=== PATIENT | female | born 2005 | race African-American/Black ===

== ENCOUNTER 2023-01-22 03:42 | Emergency (ER) | payer OTHER, SELFPAY ==
[2023-01-22 03:55] VITALS: BP 119/71; PULSE 43; RESP 16; TEMP 36.3; O2SAT 99; BMI 25.1
[2023-01-22 04:27] LABS: Hematocrit 41.5 % (37.0-47.0); Hemoglobin 14.2 g/dl (12.0-16.0); Mean Corpuscular HGB Conc 34.2 g/dl (31.0-35.0); Mean Corpuscular Hemoglobin 27.8 pg (27.0-33.0); Mean Corpuscular Volume 81.4 fL (80.0-98.0); Mean Platelet Volume 10.6 fL (9.4-12.3); Platelet Count 217 X10*3/uL (160-400); Red Cell Distribution Width 13.6 % (11.0-16.0)
[2023-01-22 04:28] LABS: Appearance Urine Clear; Color Urine Yellow; Glucose Urine UA Negative (Negative); Leukocyte Esterase Urine Negative (Negative); Nitrite Urine Negative (Negative); PH 5.5 (5.0-9.0); UMIC TRIGGER UACC YES; Urine Blood Moderate (2+) (Negative); Urine Ketones Negative (Negative); Urine Protein Negative (Neg-Trace)
[2023-01-22 04:41] LABS: Alanine Aminotransferase 13 U/L (0-31); Albumin Level 4.4 g/dL (3.5-5.0); Alkaline Phosphatase 95 U/L (39-117); Anion Gap 10 (12-20); Aspartate Amino Transferase 19 U/L (5-31); Bilirubin Total 0.4 mg/dL (0.0-1.0); Blood Urea Nitrogen 13 mg/dL (9-16); Calcium 9.6 mg/dL (8.4-10.2); Carbon Dioxide 25 mmol/L (22-29); Chloride 110 mmol/L (96-108); Creatinine Clr Calc Pharmacy 103.5; Estimated Glomerular Filt Rate > 60; Glucose Random 89 mg/dL (60-115); Lipase 22 U/L (8-78); Potassium 3.9 mmol/L (3.3-5.1); Sodium 141 mmol/L (135-145); Total Protein 7.3 g/dL (6.5-8.0)
[2023-01-22 04:49] LABS: Bacteria Urine None Seen (None Seen); Hyaline Casts Urine 0-2 /LPF (0-2); Squamous Epithelial Cell Urine 0-2 /HPF (0-2); WBC Urine 0-5 /HPF (0-5)
[2023-01-22 06:06] VITALS: BP 118/76; PULSE 52; RESP 16; TEMP 36.7; O2SAT 98
[2023-01-22 08:32] VITALS: BP 125/73; PULSE 42; RESP 16; O2SAT 100
[2023-01-22 10:00] VITALS: BP 133/82; RESP 18; TEMP 36.7; O2SAT 97
[2023-01-22 10:12] VITALS: PULSE 48
[2023-01-22 10:21] LABS: UPreg QC Valid YES; Urine Pregnancy NEGATIVE (NEGATIVE)
--- NOTE | 2023-01-22 10:29 | ED.ABDPAIN ---
HPI - Abdominal Pain General Chief Complaint: Abdominal Pain Stated Complaint: stomach pain Time Seen by Provider: 01/22/23 09:59 Source: patient Mode of arrival: ambulatory Limitations: no limitations History of Present Illness HPI narrative: 17 yo female presenting to the ER for evaluation of intermittent diffuse abdominal pains that started yesterday morning when she work up. She states the pain comes and goes. She has had some mild associated nausea but no Vomiting, diarrhea or constipation. She states her last bowel movement was yesterday. She denies any urinary symptoms. She denies any chance of . She states the pain is currently a 3/10. She was tolerating p.o. in the waiting room. MD elicited complaint: abdominal pain Pertinent past history: none Onset (ago): day(s) (1) Pain Consistency: intermittent Location: diffuse Severity: moderate Radiation: none Migration to: no migration Exacerbating factors: nothing Relieving factors: nothing Associated symptoms: nausea Related Data Allergies Allergy/AdvReac Type Severity Reaction Status Date / Time No Known Allergies Allergy Verified 01/22/23 03:58 Review of Systems Review of Systems Yes all other systems are reviewed and are negative [facility] Past Medical History Medical History (Updated 01/22/23 @ 11:20 by TALITA Canseco) Achilles rupture ACL tear Social History Social History Smoked in Last 30 Days: No Use of substances other than those prescribed or required for medical reasons: No Advance Directives: No Advance Directives Information Provided: No Physical Exam ED Vital Signs: Vital Signs - 24 hr 01/22/23 03:55 01/22/23 06:06 01/22/23 08:32 Temperature 97.3 F 98.0 F Pulse Rate 43 L 52 42 L Respiratory Rate 16 16 16 Blood Pressure 119/71 118/76 125/73 Pulse Oximetry 99 98 100 Oxygen Delivery Method Room Air Room Air Room Air 01/22/23 10:00 01/22/23 10:12 Temperature 98.0 F Pulse Rate 48 L Respiratory Rate 18 Blood Pressure 133/82 Pulse Oximetry 97 Oxygen Delivery Method Room Air BMI result Body Mass Index 25.1 Appearance: Alert. Oriented X3. No acute distress. Head: normocephalic, atraumatic. Eyes: Pupils equal, round and reactive to light. ENT: Pharynx normal. No tonsillar swelling or exudate. Neck: Normal inspection. Neck supple. CVS: Normal heart rate and rhythm. Pulses normal. Respiratory: No respiratory distress. Breath sounds normal. Abdomen: Soft and nontender. +BS x4 Skin: Skin warm and dry. Normal skin color. Normal skin turgor. No rashes. Extremities: No lower extremity edema. No joint swelling. Neuro/psych: Oriented X 3. No motor deficit. No sensory deficit. CN II-XII intact. Normal speech and cognition. Medical Decision Making Medical Decision Making [facility] Narrative: 17-year-old female presenting to the ER for evaluation of intermittent, diffuse abdominal pains associated with nausea that started yesterday morning. patient's physical exam is unremarkable. Her abdomen is soft and nontender. Her lab work is also unremarkable. Only a mild leukocytosis of 11.0. Urinalysis negative for infection and . She was treated with GI cocktail and feels much better. She would like to go home. Comfortable holding off imaging and further testing today. Advised bland diet, p.r.n. Pepto or Maalox for upset stomach. Return precautions were discussed. Stable for discharge home Differential Diagnosis Differential Diagnoses: The differential diagnosis associated with the presentation includes Gastritis, gastroenteritis, GERD, , constipation, less likely acute cholecystitis, appendicitis, diverticulitis or colitis Admission/Observation Consideration of admission/observation: Escalation of care including admission/observation considered 17-year-old female presenting with abdominal pain, and considered observation Lab Data [facility] Lab Attestation statement: I reviewed the patient's lab results. 01/22/23 04:22 01/22/23 04:22 Labs: Lab Results 01/22/23 01/22/23 01/22/23 Range/Units 04:22 04:22 04:22 WBC 11.0 H (4.8-10.8) X10*3/uL RBC 5.10 (4.20-5.50) X10*6/uL Hgb 14.2 (12.0-16.0) g/dl Hct 41.5 (37.0-47.0) % MCV 81.4 (80.0-98.0) fL MCH 27.8 (27.0-33.0) pg MCHC 34.2 (31.0-35.0) g/dl RDW 13.6 (11.0-16.0) % Plt Count 217 (160-400) X10*3/uL MPV 10.6 (9.4-12.3) fL Absolute Nucleated RBC 0.000 (0.0-0.012) X10*3/uL Nucleated RBC % (auto) 0.0 (0.0-0.2) /100WBC Sodium 141 (135-145) mmol/L Potassium 3.9 (3.3-5.1) mmol/L Chloride 110 H (96-108) mmol/L Carbon Dioxide 25 (22-29) mmol/L Anion Gap 10 L (12-20) BUN 13 (9-16) mg/dL Creatinine 1.04 (0.5-1.4) mg/dL Estim Creat Clear Calc 103.5 Estimated GFR > 60 Random Glucose 89 (60-115) mg/dL Calcium 9.6 (8.4-10.2) mg/dL Total Bilirubin 0.4 (0.0-1.0) mg/dL AST 19 (5-31) U/L ALT 13 (0-31) U/L Alkaline Phosphatase 95 (39-117) U/L Total Protein 7.3 (6.5-8.0) g/dL Albumin 4.4 (3.5-5.0) g/dL Lipase 22 (8-78) U/L Urine Color Yellow Urine Appearance Clear Urine pH 5.5 (5.0-9.0) Ur Specific Foreman 1.020 (1.005-1.025) Urine Protein Negative (Neg-Trace) mg/dL Urine Glucose (UA) Negative (Negative) mg/dL Urine Ketones Negative (Negative) mg/dL Urine Blood Moderate (2+) H (Negative) Urine Nitrite Negative (Negative) Ur Leukocyte Esterase Negative (Negative) Urine RBC 3-5 H (0-2) /HPF Urine WBC 0-5 (0-5) /HPF Ur Squamous Epith Cells 0-2 (0-2) /HPF Urine Bacteria None Seen (None Seen) Hyaline Casts 0-2 (0-2) /LPF Urine Test (NEGATIVE) 01/22/23 Range/Units 04:22 WBC (4.8-10.8) X10*3/uL RBC (4.20-5.50) X10*6/uL Hgb (12.0-16.0) g/dl Hct (37.0-47.0) % MCV (80.0-98.0) fL MCH (27.0-33.0) pg MCHC (31.0-35.0) g/dl RDW (11.0-16.0) % Plt Count (160-400) X10*3/uL MPV (9.4-12.3) fL Absolute Nucleated RBC (0.0-0.012) X10*3/uL Nucleated RBC % (auto) (0.0-0.2) /100WBC Sodium (135-145) mmol/L Potassium (3.3-5.1) mmol/L Chloride (96-108) mmol/L Carbon Dioxide (22-29) mmol/L Anion Gap (12-20) BUN (9-16) mg/dL Creatinine (0.5-1.4) mg/dL Estim Creat Clear Calc Estimated GFR Random Glucose (60-115) mg/dL Calcium (8.4-10.2) mg/dL Total Bilirubin (0.0-1.0) mg/dL AST (5-31) U/L ALT (0-31) U/L Alkaline Phosphatase (39-117) U/L Total Protein (6.5-8.0) g/dL Albumin (3.5-5.0) g/dL Lipase (8-78) U/L Urine Color Urine Appearance Urine pH (5.0-9.0) Ur Specific Foreman (1.005-1.025) Urine Protein (Neg-Trace) mg/dL Urine Glucose (UA) (Negative) mg/dL Urine Ketones (Negative) mg/dL Urine Blood (Negative) Urine Nitrite (Negative) Ur Leukocyte Esterase (Negative) Urine RBC (0-2) /HPF Urine WBC (0-5) /HPF Ur Squamous Epith Cells (0-2) /HPF Urine Bacteria (None Seen) Hyaline Casts (0-2) /LPF Urine Test NEGATIVE (NEGATIVE) External Record Review External record reviewed: Outpatient record Tests considered The following testing was considered but not selected: considered CT scan of the abdomen however she was nontender on examination Prescription Management I considered prescription management with: Pain Medication Medications Administered Discontinued Medications Generic Name Dose Route Start Last Admin Trade Name Freq PRN Reason Stop Dose Admin Acetaminophen 975 mg 01/22/23 10:36 01/22/23 10:48 Acetaminophen 325 Mg Tablet PO 09/06/23 10:37 975 mg ONCE ONE Administration Al Hydroxide/Mg Hydroxide 30 ml 01/22/23 10:36 01/22/23 10:47 Magnesium Hydrox/Alum Hydrox 30 Ml Oral.Susp PO 01/22/23 10:37 30 ml ONCE ONE Administration Belladonna Alkaloids/Phenobarbital 10 ml 01/22/23 10:36 01/22/23 10:47 Phenobarb/Hyoscy/Atropine/Scop 10 Ml Elixir PO 01/22/23 10:37 10 ml ONCE ONE Administration Lidocaine HCl 15 ml 01/22/23 10:36 01/22/23 10:48 Lidocaine Hcl Viscous 2 % 15 Ml Solution MUCOUS MEM 01/22/23 10:37 15 ml ONCE ONE Administration Critical Care Time Critical Care Time Critical Care Time: No Discharge Plan Discharge Clinical Impression: Abdominal pain Patient Disposition: Home, Self-Care Instructions: Abdominal Pain (ED) Additional Instructions: Your lab workup today was unremarkable. Your urine test was negative for infection and . Recommends sticking to a bland diet where not feeling well. Recommend Pepto-Bismol or Maalox as needed for upset stomach. Follow-up with your doctor. If you develop new or worsening symptoms call 911 or come back to the ER for further evaluation. Interventions: ED Discharge Assessment Last Done: 01/22/23 11:38 Discharge Date/Time: 01/22/23 11:38
[2023-01-22] MEDS: Magnesium Hydrox/Alum Hydrox 30 ML ORAL.SUSP PO (10:47)
[2023-01-22] MEDS: PHENobarb/Hyoscy/Atropine/Scop 10 ML ELIXIR PO (10:47)
[2023-01-22] MEDS: Acetaminophen 325 MG TABLET 975 MG PO (10:48)
[2023-01-22] MEDS: Lidocaine HCl Viscous 2 % 15 ML SOLUTION MUCOUS MEM (10:48)
--- NOTE | 2023-01-22 10:52 | PC.NURSE ---
pt a&ox3. respirations even and unlabored. pt reports waking up with all over abdominal pain since yesterday that feels like it is cramping. pt denies nausea and vomiting at this time. pt denies chest pain and reports normal bowel movements. abdomen is soft non tender. vss. pt medicated per jul.
== END 2023-01-22 11:38 | disposition home or self-care (01) ==
PROVIDERS: Physician Assistant; Emergency Provider Emergency Medicine
DX: R10.9 Unspecified abdominal pain (principal)
CPT/HCPCS: 36415; 80053; 81001; 81025; 83690; 85027; 99284

== ENCOUNTER 2023-08-21 17:24 | Outpatient (REF) | payer OTHER, SELFPAY ==
--- NOTE | ~2023-08-21 | MR_ITS ---
EXAMINATION: MR ANKLE WITHOUT CONTRAST, right CLINICAL INFORMATION: Pain Achilles tendinitis COMPARISON: None available. TECHNIQUE: MRI of the ankle was performed using routine sequences on a high-field scanner. FINDINGS: Muscles/tendons: Achilles: There is minimal/subtle intermediate increased signal in the distal Achilles tendon compatible with focal tendinosis or minimal interstitial intrasubstance partial tearing no transverse defect or tendon retraction. No edema in the surrounding soft tissues. Remaining portion of the Achilles tendon and musculotendinous junction is normal. Trace fluid in the retrocalcaneal bursa Remaining muscles and tendons normal. Plantar fascia: Normal. Subcutaneous soft tissues: Normal. Neurovascular structures/tarsal tunnel: Normal. Ligaments: Attenuation of the anterior talofibular ligament compatible with old partial tear. Remaining ligaments intact. Bone/joints: There is a lobulated masslike fluid collection abutting the distal tibia and posterior tibial fibular ligament. This measures up to 10 mm transverse 14 mm AP and 23 mm craniocaudal. This also abuts the lateral aspect of the flexor hallucis longus muscle and medial aspect of the peroneal muscles. This has the appearance of a ganglion cyst. There is a mild effusion of the talocrural navicular joint. Bone and joints otherwise unremarkable. MR/MR ankle RT wo con IMPRESSION: 1. Minimal/subtle abnormality of the distal Achilles tendon compatible with tendinosis and/or minimal interstitial intrasubstance partial tearing. No transverse defect or tendon retraction. . 2. Ganglion cyst abutting the posterior distal tibia and fibula. 3. Old partial tear of the anterior talofibular ligament. 4. Mild effusion of the talocrural navicular joint.
== END 2023-08-21 17:25 | disposition home or self-care (01) ==
LOC: HO.MRI 17:24
PROVIDERS: Visit Provider Family Medicine Sports Medicine
DX: M76.61 Achilles tendinitis, right leg (principal)
CPT/HCPCS: 73721